=== PATIENT | male | born 1980 | race Caucasian/White ===

== ENCOUNTER 2017-04-03 06:49 | Emergency (ER) | payer OTHER ==
[~2017-04-03] VITALS: Ht 182.9 cm; Wt 95.0 kg
[~2017-04-03 06:49] MED LIST: ALPR2TAB3 PO; CHLO.12%30 SSP; CLIN150 PO; SERO300T PO; TRAZ50TA4 PO
[2017-04-03 06:50] VITALS: BP 138/89; PULSE 84; RESP 15; TEMP 97.6; O2SAT 97
--- NOTE | 2017-04-03 07:09 | PD ---
HPI . acute on chronic back pain Chief Complaint: Back/ Neck Pain or Injury Time Seen by Provider: 07:09 Travel History International Travel<30 days: No Contact w/Intl Traveler<30days: No Traveled to known affect area: No History of Present Illness HPI 36 yr old male with chronic back pain here with c/o worsening back pain. He tells me he used to have insurance and was seeing his PCP, who provided him with oxycodone and muscle relaxers. Since he has not been able to f/u with his PCP due to lack of insurance he tells me he has no meds and is now in excruciating pain. He points to his lower back in the paraspinal muscles. He denies any bowel or bladder dysfunction. He denies any saddle anesthesia. He tells me if he had insurance, he would just go to his PCP. PFSH Past Medical History Bipolar Disorder: Yes Diminished Hearing: No Musculoskeletal: Yes (ACCUMULATION OF SCAR TISSUE AT LEFT KNEE S/P "2 BREAKS") Past Surgical History Tonsillectomy: Yes Other Surgery: Yes (EXTRA RIB REMOVED LEFT CHEST, BACK SURGERY TO REMOVE CYST) Social History Alcohol Use: No Tobacco Use: Yes (1 PPD) Substance Use: No Allergies-Medications (Allergen,Severity, Reaction): Coded Allergies: Sulfa (Verified Allergy, Mild, HIVES, 12/15/14) Aspirin (Verified Adverse Reaction, Mild, GI UPSET, 12/15/14) Reported Meds & Prescriptions Reported Meds & Active Scripts Active Flexeril (Cyclobenzaprine HCl) 5 Mg Tab 5 Mg PO TID Reported Trazodone (Trazodone HCl) 50 Mg Tab 50 Mg PO HS Xanax (Alprazolam) 2 Mg Tab 2 Mg PO BID PRN Review of Systems General / Constitutional: No: Fever Eyes: No: Visual changes HENT: No: Headaches Cardiovascular: No: Chest Pain or Discomfort Respiratory: No: Shortness of Breath Gastrointestinal: No: Abdominal Pain Genitourinary: No: Dysuria Musculoskeletal: Positive: Pain (lower back) Skin: No Rash Neurologic: No: Weakness Psychiatric: No: Depression Endocrine: No: Polydipsia Hematologic/Lymphatic: No: Easy Bruising Physical Exam Narrative GENERAL: AAO x 3, no acute distress, Well-nourished, well-developed patient. SKIN: Warm and dry. No visible rashes or bruising. HEAD: Normocephalic and atraumatic. EYES: No scleral icterus. No injection or drainage. ENT: No nasal drainage noted. Airway patent. NECK: Supple, trachea midline. No JVD. CARDIOVASCULAR: Regular rate and rhythm without murmurs, gallops, or rubs. RESPIRATORY: Breath sounds equal bilaterally. No accessory muscle use. No rhonchi or rales. GASTROINTESTINAL: Visual inspection normal EXTREMITIES: No cyanosis or edema. Ambulatory. Full range of motion bilateral lower extremities. Straight leg raise negative. BACK: Nontender without obvious deformity. No CVA tenderness. Paraspinal tenderness in the lumbar area. PSYCH: AAO x 3, normal affect. Data Data Last Documented VS Vital Signs Date Time Temp Pulse Resp B/P Pulse Ox O2 Delivery O2 Flow Rate FiO2 04/03/17 06:50 97.6 84 15 138/89 97 Room Air MDM Medical Decision Making Medical Screen Exam Complete: Yes Emergency Medical Condition: Yes Medical Record Reviewed: Yes Differential Diagnosis Acute on chronic back pain, muscle strain, less likely spinal fracture Narrative Course 36 yr old male with chronic back pain here with c/o worsening back pain. He tells me he used to have insurance and was seeing his PCP, who provided him with oxycodone and muscle relaxers. Since he has not been able to f/u with his PCP due to lack of insurance he tells me he has no meds and is now in excruciating pain. He points to his lower back in the paraspinal muscles. He denies any bowel or bladder dysfunction. He denies any saddle anesthesia. He tells me if he had insurance, he would just go to his PCP. Patient seen and examined. He appears to have some muscle strain on top of acute back pain. I have advised him that I will provide him with some muscle relaxers. He will need to see his PCP for any further medications. I explained to him that I will not be filling his narcotic pain medication. ' Diagnosis Primary Impression: Chronic back pain Qualified Code: M54.5 - Chronic low back pain without sciatica, unspecified back pain laterality Additional Impression: Muscle strain Patient Instructions: General Instructions, Muscle Strain (ED) Additional Instructions: Muscle relaxers can cause drowsiness. Do not drive, swim or operate heavy machinery while using these medications. Please return to emergency department if your symptoms return or worsen. Follow up with your primary care provider. Take medications as prescribed. Med/Other Pt SpecificInfo: Prescription(s) given Scripts Cyclobenzaprine (Flexeril)5 Mg Tab5 Mg PO TID #21 TAB Prov:Nhung Stephens 04/03/17 Disposition: 01 DISCHARGE HOME Condition: Stable Aarti Sanchez April 03, 2017 07:09
[2017-04-03] MEDS ORDERED: TRAZ50TA12 PO (07:14)
[2017-04-03] MEDS ORDERED: XANA2TAB2 PO (07:14)
[2017-04-03] MEDS ORDERED: CYCL5TAB PO (07:15)
== END 2017-04-03 08:05 | disposition home or self-care (01) ==
LOC: NEPK 06:49
DX: M54.5 Low back pain (principal); G89.29 Other chronic pain; F17.210 Nicotine dependence, cigarettes, uncomplicated; T14.8 Other injury of unspecified body region; X58.XXXA Exposure to other specified factors, initial encounter; Y93.9 Activity, unspecified; Y92.9 Unspecified place or not applicable; Y99.8 Other external cause status
CPT/HCPCS: 99283

== ENCOUNTER 2017-07-03 12:39 | Emergency (ER) | payer SELFPAY ==
[~2017-07-03] VITALS: Ht 182.9 cm; Wt 95.0 kg
[~2017-07-03 12:39] MED LIST changes: -ALPR2TAB3 PO; -CHLO.12%30 SSP; -CLIN150 PO; +CYCL5TAB PO; -SERO300T PO; +TRAZ50TA12 PO; -TRAZ50TA4 PO; +XANA2TAB2 PO
[2017-07-03 12:40] VITALS: BP 140/90; PULSE 116; RESP 20; TEMP 97.9; O2SAT 97
[2017-07-03 13:00] VITALS: BP 132/86; PULSE 112; RESP 21; TEMP 98.8; O2SAT 98
[2017-07-03] MEDS ORDERED: ZOFR4TAB3 SL (13:17)
[2017-07-03] MEDS ORDERED: LOPE2CAP PO (13:17)
--- NOTE | 2017-07-03 13:17 | PD ---
HPI Chief Complaint: GI Complaint Time Seen by Provider: 13:03 Travel History International Travel<30 days: No Contact w/Intl Traveler<30days: No Traveled to known affect area: No History of Present Illness HPI This is a 36 year old male who presents to the emergency department with 3 days of fevers, chills, vomiting, loose stools, cough and rhinorrhea, constant, moderate severity. 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 He is otherwise healthy. PFSH Past Medical History Bipolar Disorder: Yes Diminished Hearing: No Musculoskeletal: Yes (ACCUMULATION OF SCAR TISSUE AT LEFT KNEE S/P "2 BREAKS") Migraines: Yes Tetanus Vaccination: < 5 Years Influenza Vaccination: No Past Surgical History Tonsillectomy: Yes Other Surgery: Yes (EXTRA RIB REMOVED LEFT CHEST, BACK SURGERY TO REMOVE CYST) Social History Alcohol Use: No Tobacco Use: Yes (1 PPD) Substance Use: No Allergies-Medications (Allergen,Severity, Reaction): Coded Allergies: Sulfa (Verified Allergy, Mild, HIVES, 07/03/17) Aspirin (Verified Adverse Reaction, Mild, GI UPSET, 07/03/17) Reported Meds & Prescriptions Reported Meds & Active Scripts Active No Active Prescriptions or Reported Medications Review of Systems Except as stated in HPI: all other systems reviewed are Neg Physical Exam Narrative GENERAL:Well appearing, no acute distress SKIN: Focused skin assessment warm and dry. HEAD: Atraumatic. Normocephalic. EYES: Pupils equal and round. No injection or drainage. ENT: Moist mucous membranes NECK: Trachea midline. CARDIOVASCULAR: Regular rate and rhythm. No murmur appreciated. RESPIRATORY: Clear to auscultation. Breath sounds equal bilaterally. GASTROINTESTINAL: Abdomen soft, mildly tender in the left upper quadrant and in the lower abdomen with no rebound or guarding. MUSCULOSKELETAL: No obvious deformities. NEUROLOGICAL: Awake and alert. No obvious cranial nerve deficits. Moving all extremities. PSYCHIATRIC: Appropriate mood and affect; insight and judgment normal. Data Data Last Documented VS Vital Signs Date Time Temp Pulse Resp B/P Pulse Ox O2 Delivery O2 Flow Rate FiO2 07/03/17 13:00 98.8 112 21 132/86 98 Room Air MDM Medical Decision Making Medical Screen Exam Complete: Yes Emergency Medical Condition: Yes Interpretation(s) Afebrile, tachycardic, normotensive Differential Diagnosis Gastroenteritis, dehydration, influenza, viral syndrome Narrative Course This is a 36-year-old male who presents to the emergency department with flulike symptoms. He is tachycardic and appears a little dehydrated. I offered him an IV for IV hydration. He feels like he can manage this at home but really wanted a note for work and some symptomatic medications. He'll be discharged with Zofran and Imodium. Diagnosis Primary Impression: Viral syndrome Patient Instructions: General Instructions Departure Forms: Tests/Procedures, Work Release Enter return to work date: Jul 04, 2017 Special Instructions: Please excuse from work for 07/01, 07/02, 07/03 Additional Instructions: If you develop lightheadedness, dizziness, persistent vomiting, inability to eat , or severe abdominal pain return to the emergency department. Followup with your primary care physician in 2-3 days if your symptoms have not resolved. Wash your hands agressively after using the restroom as to not spread your illness to others. Do not return to work until your symptoms have resolved. Take Zofran as needed for nausea. Med/Other Pt SpecificInfo: Prescription(s) given Scripts Loperamide 2 Mg Cap2 Mg PO DIRECTED PRN (DIARRHEA) #10 CAP One capsule after each loose stool. Not to exceed 8 capsules per day. Prov:Lyssa Davila MD 07/03/17 Ondansetron Odt (Zofran Odt)4 Mg Tab4 Mg SL Q6HR PRN (Nausea/Vomiting) #15 TAB Prov:Lyssa Davila MD 07/03/17 Disposition: 01 DISCHARGE HOME Condition: Stable Lyssa Davila MD Jul 03, 2017 13:17
== END 2017-07-03 13:47 | disposition home or self-care (01) ==
LOC: NEPD 12:39
DX: B34.9 Viral infection, unspecified (principal); R00.0 Tachycardia, unspecified; E86.0 Dehydration; F31.9 Bipolar disorder, unspecified; F17.200 Nicotine dependence, unspecified, uncomplicated; Z88.2 Allergy status to sulfonamides; Z88.6 Allergy status to analgesic agent
CPT/HCPCS: 99283

== ENCOUNTER 2017-07-16 14:44 | Emergency (ER) | payer SELFPAY ==
[~2017-07-16] VITALS: Ht 177.8 cm; Wt 80.0 kg
[~2017-07-16 14:44] MED LIST changes: -CYCL5TAB PO; +LOPE2CAP PO; -TRAZ50TA12 PO; -XANA2TAB2 PO; +ZOFR4TAB3 SL
[2017-07-16 14:50] VITALS: BP 128/74; PULSE 74; RESP 15; TEMP 98.4; O2SAT 98
--- NOTE | 2017-07-16 17:49 | PD ---
HPI . here for medication refill Chief Complaint: Medication Refill Request Time Seen by Provider: 17:49 Travel History International Travel<30 days: No Contact w/Intl Traveler<30days: No Traveled to known affect area: No History of Present Illness HPI 36- year old male presents to the ED requesting a medication refill. The patient reports that his psychiatrist retired and gave him a three month supply of medications. He reports that he has been out of his medications which include Seroquel, Trazodone, and Alprazolam for the past 2.5-3 weeks. However, he reports that he has no insurance and has not been able to afford to go see a new psychiatrist. He tells me that his job does not want him to have any episodes and know about his hx and asked him to come and get meds just in case. He denies any suicide or homicide. PFSH Past Medical History Bipolar Disorder: Yes Diminished Hearing: No Musculoskeletal: Yes (ACCUMULATION OF SCAR TISSUE AT LEFT KNEE S/P "2 BREAKS") Migraines: Yes Past Surgical History Tonsillectomy: Yes Other Surgery: Yes (EXTRA RIB REMOVED LEFT CHEST, BACK SURGERY TO REMOVE CYST) Social History Alcohol Use: No Tobacco Use: Yes (1 PPD) Substance Use: No Allergies-Medications (Allergen,Severity, Reaction): Coded Allergies: Sulfa (Sulfonamide Antibiotics) (Unverified Allergy, Mild, HIVES, 07/16/17) aspirin (Unverified Adverse Reaction, Mild, GI UPSET, 07/16/17) Reported Meds & Prescriptions Reported Meds & Active Scripts Active Reported Xanax (Alprazolam) 2 Mg Tab 2 Mg PO Q8H PRN Trazodone (Trazodone HCl) 300 Mg Tab 300 Mg PO HS Seroquel (Quetiapine Fumarate) 300 Mg Tab 600 Mg PO HS Review of Systems General / Constitutional: No: Fever, Chills, Weight Gain, Weight Loss, Other Eyes: No: Diploplia, Blurred Vision, Photophobia, Drainage, Redness, Foreign Body Sensation, Pain, Tearing, Blind Spots, Visual changes, Blindness, Other HENT: No: Headaches, Vertigo, Lightheadedness, Sore Throat, Rhinitis, Rhinorrhea, Congestion, Nosebleed, Neck Stiffness, Neck Pain, Masses, Gingival Bleeding, Dental Difficulties, Ear Discharge, Earache, Other Cardiovascular: No: Chest Pain or Discomfort, Palpitations, Irregular Rhythm, Tachycardia, Diaphoresis, Syncope, Dyspnea on exertion, Varicosities, Edema, Cyanosis, Varicosities, Phlebitis, Claudication, Other Respiratory: No: Cough, Shortness of Breath, Wheezing, Sneezing, Orthopnea, Hemoptysis, Stridor, Night Sweats, Pleuritic Pain, Other Gastrointestinal: No: Nausea, Vomiting, Diarrhea, Abdominal Pain, Hematemesis, Hematochezia, Constipation, Changes in Bowel Habits, Indigestion, Dysphagia, Loss of Appetite, Other Genitourinary: No: Urgency, Frequency, Dysuria, Nocturia, Hematuria, Decreased Urinary Output, Oliguria, Hesitancy, Dribbling, Incontinence, Pelvic Pain, Flank Pain, Dyspareunia, Discharge, Dysmenorrhea, Menorrhagia, Metorrhagia, Vaginal Bleeding, Other Musculoskeletal: No: Myalgias, Arthralgias, Limited ROM, Weakness, Cramping, Edema, Pain, Atrophy, Other Skin: No Rash, No Itching, No Dryness, No Lumps, No Hives, No Change in Pigmentation, No Change in nails, No Alopecia, No Lesions, No Breast Lumps, No Breast Tenderness, No Breast Swelling, No Other Neurologic: No: Weakness, Dizziness, Syncope, Focal Abnormalities, Coordination Problem, Tremor, Ataxia, Headache, Change in Mentation, Slurred Speech, Paresthesia, Incontinence, Seizures, Sensory Disturbance, Other Psychiatric: Positive: Other (Bipolar), No: Anxiety, Depression, Suicidal Ideations, Disorder of Thought, Mood Disorder, Substance Abuse, Homicidal Ideation Endocrine: No: Heat Intolerance, Cold Intolerance, Polyuria, Polydipsia, Other Hematologic/Lymphatic: No: Easy Bruising, Lymph Node Enlargement, Other Physical Exam Narrative GENERAL: AAOx3, NAD, SKIN: Warm and dry. HEAD: Atraumatic. Normocephalic. EYES: Pupils equal and round. No scleral icterus. No injection or drainage. ENT: No nasal bleeding or discharge. Mucous membranes pink and moist. NECK: Trachea midline. No JVD. CARDIOVASCULAR: Regular rate and rhythm. RESPIRATORY: No accessory muscle use. Clear to auscultation. Breath sounds equal bilaterally. No wheezing, rales, or rhonchi. GASTROINTESTINAL: Visual inspection, appears normal. MUSCULOSKELETAL: Extremities without clubbing, cyanosis, or edema. No obvious deformities. NEUROLOGICAL: Awake and alert. No obvious cranial nerve deficits. Motor grossly within normal limits. Five out of 5 muscle strength in the arms and legs. Normal speech. PSYCHIATRIC: Appropriate mood and affect; insight and judgment normal. Data Data Last Documented VS Vital Signs Date Time Temp Pulse Resp B/P (MAP) Pulse Ox O2 Delivery O2 Flow Rate FiO2 07/16/17 14:50 98.4 74 15 128/74 (92) 98 MDM Medical Decision Making Medical Screen Exam Complete: Yes Emergency Medical Condition: No Medical Record Reviewed: Yes Differential Diagnosis Medication Refill, Bipolar Narrative Course A medical screening exam was performed: At the time of evaluation the presenting medical condition was determined not to be of an emergent nature. The patient was given the option of receiving additional care, but declined. Patient was given options for additional community resources from which to obtain care. The Patient Has Been advised to seek medical attention for their presenting complaint. The patient has been advised to return to the ER at any time if an emergent condition develops. Patient given information for [facility] and [facility]. Diagnosis Primary Impression: Encounter for medical screening examination Condition: Stable Aarti Sanchez Jul 16, 2017 17:49
[2017-07-16] MEDS ORDERED: SERO300T PO (17:52)
[2017-07-16] MEDS ORDERED: TRAZ300T2 PO (17:52)
[2017-07-16] MEDS ORDERED: XANA2TAB2 PO (17:52)
== END 2017-07-16 18:13 | disposition left against medical advice (07) ==
LOC: NEPA 14:44
DX: Z76.0 Encounter for issue of repeat prescription (principal); F31.9 Bipolar disorder, unspecified; F17.200 Nicotine dependence, unspecified, uncomplicated; Z88.2 Allergy status to sulfonamides; Z88.6 Allergy status to analgesic agent; Z79.899 Other long term (current) drug therapy
CPT/HCPCS: 99281

== ENCOUNTER 2017-11-19 01:58 | Emergency (ER) | payer SELFPAY ==
[~2017-11-19] VITALS: Ht 188 cm; Wt 85.0 kg
[~2017-11-19 01:58] MED LIST changes: -LOPE2CAP PO; +SERO300T PO; +TRAZ300T2 PO; +XANA2TAB2 PO; -ZOFR4TAB3 SL
[2017-11-19 01:59] VITALS: BP 140/83; PULSE 83; RESP 16; TEMP 97.6; O2SAT 99
[2017-11-19] MEDS ORDERED: ZITHTAB PO (02:23)
[2017-11-19] MEDS ORDERED: ZOFR4TAB3 SL (02:23)
[2017-11-19] MEDS ORDERED: VENTAER INH (02:23)
--- NOTE | 2017-11-19 02:23 | PD ---
HPI Chief Complaint: Cold / Flu Symptoms Time Seen by Provider: 02:12 Travel History International Travel<30 days: No Contact w/Intl Traveler<30days: No Traveled to known affect area: No History of Present Illness HPI 37-year-old male complains of nausea vomiting coughing congestion and body ache. Patient states that the symptoms started about 3 days ago. Patient states the cough persists nonproductive. Patient denies any chest pain or shortness of breath. Patient denies abdominal pain. Patient denies any dysuria or frequency. Patient denies any fever chills. Patient complaint generalized malaise and weakness. Patient is a smoker. PFSH Past Medical History Bipolar Disorder: Yes Diminished Hearing: No Musculoskeletal: Yes (ACCUMULATION OF SCAR TISSUE AT LEFT KNEE S/P "2 BREAKS") Migraines: Yes Past Surgical History Tonsillectomy: Yes Other Surgery: Yes (EXTRA RIB REMOVED LEFT CHEST, BACK SURGERY TO REMOVE CYST) Social History Alcohol Use: No Tobacco Use: Yes (1 PPD) Substance Use: No Allergies-Medications (Allergen,Severity, Reaction): Coded Allergies: Sulfa (Sulfonamide Antibiotics) (Unverified Allergy, Mild, HIVES, 11/19/17 ) aspirin (Unverified Adverse Reaction, Mild, GI UPSET, 11/19/17) Reported Meds & Prescriptions Reported Meds & Active Scripts Active Reported Xanax (Alprazolam) 2 Mg Tab 2 Mg PO Q8H PRN Trazodone (Trazodone HCl) 300 Mg Tab 300 Mg PO HS Seroquel (Quetiapine Fumarate) 300 Mg Tab 600 Mg PO HS Review of Systems General / Constitutional: No: Fever Eyes: No: Visual changes HENT: No: Headaches Cardiovascular: No: Chest Pain or Discomfort Respiratory: Positive: Cough, No: Shortness of Breath Gastrointestinal: Positive: Nausea, Vomiting, No: Abdominal Pain Genitourinary: No: Dysuria Musculoskeletal: No: Pain Skin: No Rash Neurologic: No: Weakness Psychiatric: No: Depression Endocrine: No: Polydipsia Hematologic/Lymphatic: No: Easy Bruising Physical Exam Narrative GENERAL: Well-nourished, well-developed patient. SKIN: Focused skin assessment warm/dry. HEAD: Normocephalic. EYES: No scleral icterus. No injection or drainage. NECK: Supple, trachea midline. No JVD or lymphadenopathy. CARDIOVASCULAR: Regular rate and rhythm without murmurs, gallops, or rubs. RESPIRATORY: Breath sounds equal bilaterally. No accessory muscle use. Patient has mild expiratory wheezes. No rhonchi. GASTROINTESTINAL: Abdomen soft, non-tender, nondistended. MUSCULOSKELETAL: No cyanosis, or edema. BACK: Nontender without obvious deformity. No CVA tenderness. Neurologic exam normal. Data Data Last Documented VS Vital Signs Date Time Temp Pulse Resp B/P (MAP) Pulse Ox O2 Delivery O2 Flow Rate FiO2 11/19/17 01:59 97.6 83 16 140/83 (102) 99 Room Air MDM Medical Decision Making Medical Screen Exam Complete: Yes Emergency Medical Condition: Yes Differential Diagnosis Differential diagnosis including viral syndrome, bronchitis, pneumonia, reactive airway disease, gastroenteritis, dehydration, electrolyte imbalance. Narrative Course 37-year-old male with coughing congestion and nausea vomiting Diagnosis Primary Impression: Viral syndrome Additional Impression: Bronchitis Patient Instructions: General Instructions Additional Instructions: Use inhaler as needed. Take medications as directed. Follow-up with personal physician. Return if persistent problem or worse. Med/Other Pt SpecificInfo: Prescription(s) given Scripts Ondansetron Odt (Zofran Odt) 4 Mg Tab 4 MG SL Q6HR Y for Nausea/Vomiting, #10 TAB 0 Refills Prov: Shivam Nicole MD 11/19/17 Azithromycin (Zithromax Z-Meek) 250 Mg Dspk 250 MG PO DIRECTED for Infection, #1 DSPK 0 Refills 500 MG (2 tabs) day 1, then 1 tab days 2-5. Prov: Shivam Nicole MD 11/19/17 Albuterol 18 GM Inh (Ventolin Hfa 18 GM Inh) 90 Mcg/Act Aer 2 PUFF INH Q4-6H Y for SHORTNESS OF BREATH, #1 INHALER 0 Refills Prov: Shivam Nicole MD 11/19/17 Disposition: 01 DISCHARGE HOME Condition: Stable Shivam Nicole MD Nov 19, 2017 02:23
== END 2017-11-19 02:48 | disposition home or self-care (01) ==
LOC: NEPC 01:58
DX: J20.8 Acute bronchitis due to other specified organisms (principal); R11.2 Nausea with vomiting, unspecified; F31.9 Bipolar disorder, unspecified; F17.200 Nicotine dependence, unspecified, uncomplicated; Z79.899 Other long term (current) drug therapy; Z88.2 Allergy status to sulfonamides; Z88.6 Allergy status to analgesic agent
CPT/HCPCS: 99284

== ENCOUNTER 2017-12-31 11:15 | Emergency (ER) | payer SELFPAY ==
[~2017-12-31] VITALS: Ht 182.9 cm; Wt 100.0 kg
[~2017-12-31 11:15] MED LIST changes: +VENTAER INH; +ZITHTAB PO; +ZOFR4TAB3 SL
[2017-12-31 11:16] VITALS: BP 106/60; PULSE 80; RESP 16; TEMP 98.4; O2SAT 97
--- NOTE | 2017-12-31 12:39 | RADRPT ---
EXAM DATE/TIME: 12/31/2017 12:29 [facility] COMPARISON: No previous studies available for comparison. INDICATIONS : Left knee pain from fall. MEDICAL HISTORY : Previous left knee fracture. SURGICAL HISTORY : None. ENCOUNTER: Initial ACUITY: 1 day PAIN SCORE: 8/10 LOCATION: Left knee FINDINGS: Two view examination of the left knee demonstrates no evidence of fracture or dislocation. Bony mine ralization is normal. The suprapatellar soft tissues have a normal configuration. CONCLUSION: Negative for fracture or dislocation. Follow up in 7-10 days is suggested if symptoms persist. Erwin Malik MD FACR on December 31, 2017 at 12:37 Board Certified Radiologist. This report was verified electronically.
--- NOTE | 2017-12-31 13:41 | PD ---
HPI Chief Complaint: Pain: Acute or Chronic Time Seen by Provider: 12:57 Travel History International Travel<30 days: No Contact w/Intl Traveler<30days: No Traveled to known affect area: No History of Present Illness HPI This is a 37-year-old male who presents to the emergency department having fallen 4 days ago when he was at home slipping on tile landing on the side of his left leg with severe left knee pain, constant, worse with walking, improved with rest with no associated numbness and weakness that has been worsening over the past 4 days. Patient also has noticed a significant amount of swelling of his left leg. PFSH Past Medical History Bipolar Disorder: Yes Diminished Hearing: No Musculoskeletal: Yes (ACCUMULATION OF SCAR TISSUE AT LEFT KNEE S/P "2 BREAKS") Migraines: Yes Past Surgical History Tonsillectomy: Yes Other Surgery: Yes (EXTRA RIB REMOVED LEFT CHEST, BACK SURGERY TO REMOVE CYST) Social History Alcohol Use: No Tobacco Use: Yes (1 PPD) Substance Use: No Allergies-Medications (Allergen,Severity, Reaction): Coded Allergies: Sulfa (Sulfonamide Antibiotics) (Unverified Allergy, Mild, HIVES, 12/31/17) aspirin (Unverified Adverse Reaction, Mild, GI UPSET, 12/31/17) Reported Meds & Prescriptions Reported Meds & Active Scripts Active Zofran Odt (Ondansetron Odt) 4 Mg Tab 4 Mg SL Q6HR PRN Zithromax Z-Meek (Azithromycin) 250 Mg Dspk 250 Mg PO DIRECTED 500 MG (2 tabs) day 1, then 1 tab days 2-5. Ventolin Hfa 18 GM Inh (Albuterol Sulfate) 90 Mcg/Act Aer 2 Puff INH Q4-6H PRN Reported Xanax (Alprazolam) 2 Mg Tab 2 Mg PO Q8H PRN Trazodone (Trazodone HCl) 300 Mg Tab 300 Mg PO HS Seroquel (Quetiapine Fumarate) 300 Mg Tab 600 Mg PO HS Review of Systems Except as stated in HPI: all other systems reviewed are Neg General / Constitutional: No: Fever, Chills Gastrointestinal: No: Nausea, Vomiting Physical Exam Narrative GENERAL:Well appearing, no acute distress SKIN: Abrasion on the left patella HEAD: Atraumatic. Normocephalic. EYES: Pupils equal and round. No injection or drainage. ENT: Moist mucous membranes NECK: Trachea midline. CARDIOVASCULAR: Regular rate and rhythm. No murmur appreciated. RESPIRATORY: Clear to auscultation. Breath sounds equal bilaterally. GASTROINTESTINAL: Abdomen soft, non-tender, nondistended. MUSCULOSKELETAL: Focally tender over the left patella and left lateral proximal tibia. Swelling of the left calf and left foot. NEUROLOGICAL: Awake and alert. No obvious cranial nerve deficits. 5 out of 5 strength in the bilateral lower extremities with normal sensation distally. PSYCHIATRIC: Appropriate mood and affect; insight and judgment normal. Data Data Last Documented VS Vital Signs Date Time Temp Pulse Resp B/P (MAP) Pulse Ox O2 Delivery O2 Flow Rate FiO2 12/31/17 11:16 98.4 80 16 106/60 (75) 97 Orders Orders Knee, Ltd (1 Or 2vws) (12/31/17 ) Us Leg Venous Doppler (12/31/17 ) Ketorolac Inj (Toradol Inj) (12/31/17 14:00) MDM Medical Decision Making Medical Screen Exam Complete: Yes Emergency Medical Condition: Yes Interpretation(s) X-ray with no acute fracture Ultrasound with no DVT Differential Diagnosis Knee sprain, patellar fracture, tibial fracture, DVT Narrative Course This is a 37-year-old male who presents to the emergency department having a fall 4 days ago injuring his left knee. He has significant swelling from the calf down to the foot on the left side. He has been having difficulty weightbearing on the knee. X-rays reassuring with no evidence of fracture and ultrasound is negative for DVT. He has a normal neurovascular exam. I think patient is appropriate for rest, ice and elevation in the setting of a likely sprain. He was asked to follow-up with [facility] in 1 week if he is not improving. He was given crutches and anti-inflammatories. He will be discharged home. Diagnosis Primary Impression: Knee sprain Qualified Codes: S83.92XA - Sprain of unspecified site of left knee, initial encounter Referrals: [facility] Patient Instructions: General Instructions Additional Instructions: If he develops severe pain, numbness, weakness or coolness of the leg return to the emergency room. Follow-up with his daily health in 1 week if you are not improved. Med/Other Pt SpecificInfo: Prescription(s) given Scripts Naproxen (Naproxen) 500 Mg Tab 500 MG PO BID Y for PAIN SCALE 4 TO 10, #20 TAB 0 Refills Prov: Lyssa Davila MD 12/31/17 Disposition: 01 DISCHARGE HOME Condition: Stable Lyssa Davila MD Dec 31, 2017 13:41
--- NOTE | 2017-12-31 13:54 | RADRPT ---
EXAM DATE/TIME: 12/31/2017 13:09 [facility] COMPARISON: No previous studies available for comparison. INDICATIONS : Left leg pain. MEDICAL HISTORY : Left knee pain. SURGICAL HISTORY : None. ENCOUNTER: Initial ACUITY: 1 day PAIN SCORE: 8/10 LOCATION: Left leg. TECHNIQUE: Venous ultrasound of the leg was performed from the inguinal ligament to the proximal calf. Real-lazaro e, color Doppler and spectral tracing, compression and augmentation techniques were used. FINDINGS: There is normal compressibility of the deep venous system from the inguinal region to the proximal ca lf. No echogenic clot is seen in the lumen of the common femoral, femoral, popliteal, and posterior tibial veins. There is a normal response of the venous system to proximal and distal augmentation an d respiration. CONCLUSION: Negative for deep venous thrombosis. Erwin Malik MD FACR on December 31, 2017 at 13:51 Board Certified Radiologist. This report was verified electronically.
[2017-12-31] MEDS ORDERED: KETOROLAC TROMETHAMINE 60 MG/2 ML (IM) VIAL IM ONE (14:00)
[2017-12-31] MEDS ORDERED: NAPR500T2 PO (14:02)
[2017-12-31 14:34] VITALS: BP 112/64
== END 2017-12-31 14:35 | disposition home or self-care (01) ==
LOC: NEPD 11:15
DX: S83.92XA Sprain of unspecified site of left knee, initial encounter (principal); F31.9 Bipolar disorder, unspecified; F17.200 Nicotine dependence, unspecified, uncomplicated; W01.0XXA Fall on same level from slipping, tripping and stumbling without subsequent striking against object, initial encounter; Y92.009 Unspecified place in unspecified non-institutional (private) residence as the place of occurrence of the external cause; Z79.899 Other long term (current) drug therapy; Z79.51 Long term (current) use of inhaled steroids; Z88.2 Allergy status to sulfonamides; Z88.6 Allergy status to analgesic agent
CPT/HCPCS: 73560; 93971; 96372; 99284; J1885

== ENCOUNTER 2018-04-18 19:22 | Emergency (ER) | payer SELFPAY ==
[~2018-04-18 19:22] MED LIST changes: +NAPR500T2 PO
[2018-04-18 19:28] VITALS: BP 153/97; PULSE 106; RESP 18; TEMP 97.9; O2SAT 99
--- NOTE | 2018-04-18 19:41 | PD ---
HPI Chief Complaint: Abdominal Pain Time Seen by Provider: 19:32 Travel History International Travel<30 days: No Contact w/Intl Traveler<30days: No Traveled to known affect area: No History of Present Illness HPI Patient comes emergency department complaining of painful lumps around his umbilicus that began approximately a month ago. Patient describes pain as sharp stabbing around it without radiation. Patient denies any making symptoms better. Touching makes pain worse. Patient reports normal bowel and bladder habits. Denies any nausea, vomiting, fevers, chest pain, shortness of breath, or back pain. Patient denies doing anything for this or being evaluated for this previously. Severity mild. PFSH Past Medical History Bipolar Disorder: Yes Diminished Hearing: No Musculoskeletal: Yes (ACCUMULATION OF SCAR TISSUE AT LEFT KNEE S/P "2 BREAKS") Immunizations Current: Yes Migraines: Yes Past Surgical History Tonsillectomy: Yes Other Surgery: Yes (EXTRA RIB REMOVED LEFT CHEST, BACK SURGERY TO REMOVE CYST) Social History Alcohol Use: No Tobacco Use: Yes (<1/2 PPD) Substance Use: No Allergies-Medications (Allergen,Severity, Reaction): Coded Allergies: Sulfa (Sulfonamide Antibiotics) (Unverified Allergy, Mild, HIVES, 04/18/18) aspirin (Unverified Adverse Reaction, Mild, GI UPSET, 04/18/18) Reported Meds & Prescriptions Reported Meds & Active Scripts Active No Active Prescriptions or Reported Medications Review of Systems Except as stated in HPI: all other systems reviewed are Neg Physical Exam Narrative GENERAL: Well-developed, overly nourished, in no acute distress, and non-ill appearing. SKIN: Focused skin assessment warm and dry. HEAD: Atraumatic. Normocephalic. EYES: Pupils equal and round. EOMI. No scleral icterus. No injection or drainage. ENT: No nasal bleeding or discharge. Mucous membranes pink and moist. NECK: Trachea midline. Supple. No nuclear rigidity. CARDIOVASCULAR: Regular rate and rhythm. No murmur appreciated. RESPIRATORY: No accessory muscle use. No respiratory distress. Clear to auscultation. Breath sounds equal bilaterally. GASTROINTESTINAL: Abdomen soft, nondistended, and no guarding. Hepatic and splenic margins not palpable. Normal bowel sounds x4. No pulsatile mass. Patient reports mild tenderness to palpation around easily reducible umbilical hernia. No crepitus. No erythema or induration. MUSCULOSKELETAL: No obvious deformities. No clubbing. No cyanosis. No edema. Full range of motion. NEUROLOGICAL: Awake and alert. No obvious cranial nerve deficits. Motor grossly within normal limits. Normal speech. PSYCHIATRIC: Appropriate mood and affect; insight and judgment normal. Data Data Last Documented VS Vital Signs Date Time Temp Pulse Resp B/P (MAP) Pulse Ox O2 Delivery O2 Flow Rate FiO2 04/18/18 19:45 98 Room Air 04/18/18 19:28 97.9 106 18 153/97 (115) Orders Orders Complete Blood Count With Diff (04/18/18 19:37) Comprehensive Metabolic Panel (04/18/18 19:37) Lipase (04/18/18 19:37) Lactic Acid (04/18/18 19:37) Prothrombin Time / Inr (Pt) (04/18/18 19:37) Act Partial Throm Time (Ptt) (04/18/18 19:37) Ct Abd/Pel W Iv Contrast(Rout) (04/18/18 19:37) Iv Access Insert/Monitor (04/18/18 19:37) Ecg Monitoring (04/18/18 19:37) Oximetry (04/18/18 19:37) Sodium Chloride 0.9% Flush (Ns Flush) (04/18/18 19:45) Ondansetron Odt (Zofran Odt) (04/18/18 19:45) Ketorolac Inj (Toradol Inj) (04/18/18 20:00) Diatrizoate Liq ( Gastroview Liq) (04/18/18 20:00) Sodium Chlor 0.9% 1000 Ml Inj (Ns 1000 M (04/18/18 20:30) Iohexol 350 Inj (Omnipaque 350 Inj) (04/18/18 21:01) Ed Discharge Order (04/18/18 21:31) Labs Laboratory Tests Test 04/18/18 19:50 04/18/18 20:03 White Blood Count 17.1 TH/MM3 Red Blood Count 6.72 MIL/MM3 Hemoglobin 18.0 GM/DL Hematocrit 54.2 % Mean Corpuscular Volume 80.6 FL Mean Corpuscular Hemoglobin 26.8 PG Mean Corpuscular Hemoglobin Concent 33.3 % Red Cell Distribution Width 15.2 % Platelet Count 304 TH/MM3 Mean Platelet Volume 7.9 FL Neutrophils (%) (Auto) 72.3 % Lymphocytes (%) (Auto) 21.9 % Monocytes (%) (Auto) 5.0 % Eosinophils (%) (Auto) 0.2 % Basophils (%) (Auto) 0.6 % Neutrophils # (Auto) 12.4 TH/MM3 Lymphocytes # (Auto) 3.7 TH/MM3 Monocytes # (Auto) 0.9 TH/MM3 Eosinophils # (Auto) 0.0 TH/MM3 Basophils # (Auto) 0.1 TH/MM3 CBC Comment DIFF FINAL Differential Comment Prothrombin Time 10.9 SEC Prothromb Time International Ratio 1.1 RATIO Activated Partial Thromboplast Time 35.0 SEC Blood Urea Nitrogen 19 MG/DL Creatinine 1.46 MG/DL Random Glucose 113 MG/DL Total Protein 8.4 GM/DL Albumin 4.7 GM/DL Calcium Level 9.4 MG/DL Alkaline Phosphatase 75 U/L Aspartate Amino Transf (AST/SGOT) 11 U/L Alanine Aminotransferase (ALT/SGPT) 22 U/L Total Bilirubin 0.7 MG/DL Sodium Level 141 MEQ/L Potassium Level 3.7 MEQ/L Chloride Level 102 MEQ/L Carbon Dioxide Level 26.1 MEQ/L Anion Gap 13 MEQ/L Estimat Glomerular Filtration Rate 54 ML/MIN Lipase 333 U/L Lactic Acid Level 1.9 mmol/L MDM Medical Decision Making Medical Screen Exam Complete: Yes Emergency Medical Condition: Yes Interpretation(s) Last Impressions Abdomen/Pelvis CT 04/18/181936 Signed Impressions: CONCLUSION: 1. Fat-containing umbilical hernia measures about 5.5 cm in diameter. Otherwis e no acute findings within the abdomen and pelvis. Mild fatty liver. Differential Diagnosis Reducible hernia, incarcerated hernia, mesenteric ischemia, metabolic disturbance Narrative Course There was no significant history of vomiting or diarrhea and no fever. The patient appeared comfortable. There was no evidence of an acute, surgical abdomen at this time. There was no clinical evidence to support appendicitis, bowel obstruction, cholecystitis/cholelithiasis, pancreatitis, perforation of gastric ulcer, colitis, diverticulitis, bacterial peritonitis, obstruction, volvulus, hernial incarceration or strangulation at this time. There was no evidence to support vascular pathology such as AAA, mesenteric ischemia. There was also no clinical evidence by history, exam or risk factors to suggest atypical presentation of cardiac disease such as ACS, AMI or atypical angina. No evidence to suggest genitourinary etiology as well. Clinical picture was discussed with the patient, as well as plan of care. The patient was instructed to follow up with their physician. Abdominal pain and hernial incarceration/ strangulation warnings were discussed with the patient. The patient is to return if worsens, pain worsens or changes, develop fever, inability to tolerate fluids with or without vomiting, unable to establish follow up or as needed. The patient agrees with plan. Patient in no obvious distress upon re-evaluation. All pertinent laboratory/ Radiology result(s) discussed with patient. Discussed patient with Dr. Vizcaino prior discharge, who is in agreement plan of care and disposition. Any questions/concerns in reference to patient diagnosis/condition discussed and clarified prior to patient's discharge. Reinforced sheer importance of close follow up with patient's primary physician or primary care clinic. Instructed patient to return to ED immediately, if symptoms return/worsen. Patient showed understanding of above instructions. Further instructions and recommendations were detailed in discharge paperwork. Patient ambulated without difficulty out of ED at discharge. Diagnosis Primary Impression: Umbilical hernia without obstruction or gangrene Additional Impression: Dehydration, mild Referrals: Shaheen Young MD [facility] Patient Instructions: Dehydration (DC), General Instructions, Umbilical Hernia (ED) Additional Instructions: Follow-up with your primary care physician and/or general surgeon in 5-7 days for reevaluation. Use [id number] Tylenol or ibuprofen as needed for pain. Follow instructions on the packaging. Drink plenty of non-caffeinated and nonalcoholic fluids. Return to the emergency department if symptoms get worse. Scripts No Active Prescriptions or Reported Meds Disposition: 01 DISCHARGE HOME Condition: Stable Chapito Estrada April 18, 2018 19:41
[2018-04-18 19:45] VITALS: O2SAT 98
[2018-04-18] MEDS ORDERED: ONDANSETRON ODT 4 MG TAB PO ONE (19:45)
[2018-04-18] MEDS ORDERED: SODIUM CHLORIDE 0.9% FLUSH 10 ML FLUSH IV FLUSH PRN (19:45)
[2018-04-18] MEDS ORDERED: KETOROLAC TROMETHAMINE 30 MG/ML (IVP) VIAL IV PUSH ONE (20:00)
[2018-04-18] MEDS ORDERED: DIATRIZOATE MEGLUM/DIATRIZOATE SOD 9 ML CUP ONE (20:00)
[2018-04-18 20:15] LABS: AUTOMATED NEUTROPHIL # 12.4 TH/MM3 (1.8-7.7); BASOPHIL # 0.1 TH/MM3 (0-0.2); BASOPHIL % 0.6 % (0.0-2.0); EOSINOPHIL % 0.2 % (0.0-4.0); HEMATOCRIT 54.2 % (39.0-51.0); LYMPH % 21.9 % (9.0-44.0); LYMPHOCYTE # 3.7 TH/MM3 (1.0-4.8); MEAN CELL VOLUME 80.6 FL (80.0-100.0); MEAN CORPUSCULAR HEMOGLOBIN 26.8 PG (27.0-34.0); MEAN CORPUSCULAR HGB CONC 33.3 % (32.0-36.0); MEAN PLATELET VOLUME 7.9 FL (7.0-11.0); MONOCYTE # 0.9 TH/MM3 (0-0.9); NEUT % 72.3 % (16.0-70.0); PLATELET COUNT 304 TH/MM3 (150-450); RED BLOOD COUNT 6.72 MIL/MM3 (4.50-5.90); RED CELL DISTRIBUTION WIDTH 15.2 % (11.6-17.2); WHITE BLOOD COUNT 17.1 TH/MM3 (4.0-11.0)
[2018-04-18 20:26] LABS: INTERNATIONAL NORMALIZED RATIO 1.1 RATIO; PROTHROMBIN TIME - PATIENT 10.9 SEC (9.8-11.6)
[2018-04-18] MEDS ORDERED: SODIUM CHLOR 0.9% 1000 ML INJ 1,000 ML IV ONE (20:30)
[2018-04-18 20:41] LABS: ALBUMIN 4.7 GM/DL (3.4-5.0); ALT (GPT) 22 U/L (12-78); AST (GOT) 11 U/L (15-37); BICARBONATE 26.1 MEQ/L (21.0-32.0); BLOOD UREA NITROGEN 19 MG/DL (7-18); CALCIUM 9.4 MG/DL (8.5-10.1); CHLORIDE 102 MEQ/L (98-107); CREATININE 1.46 MG/DL (0.60-1.30); GLOMERULAR FILTRATION RATE 54 ML/MIN (>89); GLUCOSE,RANDOM 113 MG/DL (74-106); SODIUM (NA) 141 MEQ/L (136-145)
[2018-04-18 20:51] LABS: ALKALINE PHOSPHATASE 75 U/L (45-117); TOTAL BILIRUBIN ADULT 0.7 MG/DL (0.2-1.0); TOTAL PROTEIN 8.4 GM/DL (6.4-8.2)
[2018-04-18] MEDS ORDERED: IOHEXOL 350 MG/ML 10 ML VIAL (for RAD DIAG) IVCONTRAST ONE (21:01)
--- NOTE | 2018-04-18 21:12 | RADRPT ---
EXAM DATE: 04/18/2018 9:00 PM EDT AGE/SEX: 37 years / Male INDICATIONS: Worsening umbilical hernia CLINICAL DATA: This is the patient's initial encounter. Patient reports that signs and symptoms have been present for 1 month and indicates a pain score of 4/10. MEDICAL/SURGICAL HISTORY: . Umbilical hernia Tonsillectomy. ORAL CONTRAST: Prescribed oral contrast ingested. RADIATION DOSE: 14.33 CTDI (mGy) COMPARISON: No prior [facility] exams available for comparison. TECHNIQUE: Multiple contiguous axial images were obtained through the abdomen and pelvis following b olus infusion of 93 ml Omnipaque 350 (iohexol) nonionic water-soluble contrast as a single exam dos e. Prescribed oral contrast ingested. Using automated exposure control and adjustment of the mA and/ or kV according to patient size, the radiation dose was kept as low as reasonably achievable to obtai n optimal diagnostic quality images. FINDINGS: Lung bases are clear. No acute findings in the liver, spleen, adrenals, kidneys or pancreas. No calci fied gallstones or biliary ductal dilatation. There is a fat-containing umbilical hernia measuring about 5.5 cm in diameter. No pelvic masses or adenopathy. CONCLUSION: 1. Fat-containing umbilical hernia measures about 5.5 cm in diameter. Otherwise no acute findings wi thin the abdomen and pelvis. Mild fatty liver. Electronically signed by: Lucian Jenkins MD 04/18/2018 9:11 PM EDT
== END 2018-04-18 21:46 | disposition home or self-care (01) ==
LOC: NEPC 19:22
DX: K42.9 Umbilical hernia without obstruction or gangrene (principal); E86.0 Dehydration; F31.9 Bipolar disorder, unspecified
CPT/HCPCS: 74177; 80053; 83605; 83690; 85025; 85610; 85730; 96374; 99284; J1885; J7030; Q9963; Q9967